=== PATIENT | female | born 1970 | race Caucasian/White ===

== ENCOUNTER → 2020-05-22 | Day surgery (SDC) | payer OTHER | END | disposition home or self-care (01) | LOC: FMAMMOTONE 10:08 | PROVIDERS: ATTEND Surgery Surgical Oncology | PROC: 0HBU3ZX Excision of Left Breast, Percutaneous Approach, Diagnostic (ICD-10-PCS; principal; 2020-05-22) | DX: N64.1 Fat necrosis of breast (principal); R92.1 Mammographic calcification found on diagnostic imaging of breast | CPT/HCPCS: 19081; 76098-TC-FY; 87899; 88305-TC; A4648 ==

== ENCOUNTER 2020-12-23 21:01 | Emergency (ER) | payer OTHER ==
[2020-12-23 21:10] VITALS: BP 118/70; PULSE 89; TEMP 98.6; BMI 39.4
== END 2020-12-23 22:09 | disposition home or self-care (01) ==
LOC: JER 21:01 → JERFT 21:01
DX: S50.862A Insect bite (nonvenomous) of left forearm, initial encounter (principal); W57.XXXA Bitten or stung by nonvenomous insect and other nonvenomous arthropods, initial encounter
CPT/HCPCS: 99282-25

== ENCOUNTER 2021-03-10 23:24 | Inpatient (IN) | payer OTHER ==
[2021-03-10 23:31] VITALS: BMI 44.6
[2021-03-11 00:44] LABS: EPI CELLS 19 /uL (0-25.1); HYALINE CASTS 0 /uL (0-3.1); PH,URINE 5.5 (5.0-8.0); URINE APPEARANCE CLOUDY; URINE BACTERIA 672 /uL (0-1359); URINE BILIRUBIN NEGATIVE (NEGATIVE); URINE COLOR ORANGE; URINE GLUCOSE (UA) NEGATIVE (NEGATIVE); URINE KETONE NEGATIVE (NEGATIVE); URINE LEUK ESTERASE NEGATIVE (NEGATIVE); URINE NITRITE NEGATIVE (NEGATIVE); URINE PROTEIN TRACE (NEGATIVE); URINE RBC 3797 /uL (0-23.9); URINE WBC 23 /uL (0-25.8)
[2021-03-11 02:09] LABS: BASO % 1.5 % (0-2.0); EOS % 3.3 % (0-4.5); HEMATOCRIT 37.2 % (32.4-45.2); HEMOGLOBIN 12.9 GM/dL (10.7-15.3); LYMPH % 31.7 % (8-40); MCH 32.2 pg (25.7-33.7); MCHC 34.6 g/dl (32.0-36.0); MEAN PLT VOLUME 7.2 fl (7.5-11.1); MONO % 9.4 % (3.8-10.2); NEUT % 54.1 % (42.8-82.8); PLATELET COUNT 477 10^3/uL (134-434); RDW 15.9 % (11.6-15.6); WHITE BLOOD COUNT 14.6 K/mm3 (4.0-10.0)
[2021-03-11 02:31] LABS: ALBUMIN 3.3 g/dl (3.4-5.0); CALCIUM 9.3 mg/dL (8.5-10.1)
[2021-03-11 02:34] LABS: CREATININE 0.6 mg/dL (0.55-1.3)
[2021-03-11 02:35] LABS: BILIRUBIN,TOTAL 0.2 mg/dL (0.2-1); TOT PROT 6.7 g/dl (6.4-8.2)
[2021-03-11] MEDS ORDERED: CEFTRIAXONE 1 GM in DEXTROSE 5%-WATER - 50 ML IVPB ONE (06:36)
[2021-03-11] MEDS ORDERED: CEFTRIAXONE 1 GM/50 ML BAG ONE (07:00)
[2021-03-11] MEDS ORDERED: LIDOCAINE 5% TOPICAL PATCH TP SCH (10:00)
[2021-03-11] MEDS ORDERED: ENOXAPARIN NA (PORCINE) 40 MG/0.4 ML DISP.SYRIN SQ ONE (10:13)
[2021-03-11] MEDS ORDERED: LIDOCAINE 5% TOPICAL PATCH ONE (10:13)
[2021-03-11] MEDS: ENOXAPARIN NA (PORCINE) 40 MG/0.4 ML DISP.SYRIN SQ SCH ×2 (10:14→10:21)
[2021-03-11 10:19] VITALS: BP 112/64; PULSE 84; TEMP 98.6
[2021-03-11] MEDS ORDERED: GLYCERIN 1 RECTAL SUPPOSITORY, ADULT RC ONE (10:42)
[2021-03-11] MEDS ORDERED: GLYCERIN 1 RECTAL SUPPOSITORY, ADULT PR ONE (10:42)
[2021-03-11] MEDS ORDERED: GLYCERIN 1 RECTAL SUPPOSITORY, PEDIATRIC RC ONE (10:49)
[2021-03-11 11:46] LABS: HEMOGLOBIN 13.1 GM/dL (10.7-15.3); MCHC 34.3 g/dl (32.0-36.0); MEAN CELL VOLUME 93.3 fl (80-96); MEAN PLT VOLUME 7.4 fl (7.5-11.1); PLATELET COUNT 511 10^3/uL (134-434); RBC 4.07 M/mm3 (3.60-5.2); RDW 15.7 % (11.6-15.6); WHITE BLOOD COUNT 16.4 K/mm3 (4.0-10.0)
[2021-03-11 12:09] LABS: BLOOD UREA NITROGEN 18.3 mg/dL (7-18)
[2021-03-11 12:10] LABS: ALBUMIN 3.4 g/dl (3.4-5.0); CALCIUM 9.2 mg/dL (8.5-10.1)
[2021-03-11 12:14] LABS: CREATININE 0.7 mg/dL (0.55-1.3)
[2021-03-11 12:15] LABS: BILIRUBIN,TOTAL 0.3 mg/dL (0.2-1); TOT PROT 6.8 g/dl (6.4-8.2)
[2021-03-11] MEDS ORDERED: LIDOCAINE PATCH REMOVAL MC SCH (22:00)
== END 2021-03-11 17:00 | disposition home or self-care (01) | DRG 696 ==
LOC: JER 23:24 → JERBED 03-11 04:11
PROVIDERS: ADMIT Internal Medicine; ATTEND Internal Medicine
DX: R33.9 Retention of urine, unspecified (principal); D72.829 Elevated white blood cell count, unspecified; K43.9 Ventral hernia without obstruction or gangrene; M54.5 Low back pain; K59.00 Constipation, unspecified
CPT/HCPCS: 36415; 74176-TC; 76775-TC; 76856-TC; 80053; 81003; 85025; 85027; 87086; 99285-25; C9803; U0003; U0005